=== PATIENT | male | born 1980 | race Caucasian/White ===

== ENCOUNTER 2016-07-22 17:08 | Emergency (ER) ==
[2016-07-22] MEDS ORDERED: ZOFRAN ODT PO ONE (17:19)
[2016-07-22] MEDS ORDERED: PHENERGAN IM ONE (17:19)
[2016-07-22] MEDS ORDERED: ZOFRAN ONE (17:47)
[2016-07-22] MEDS ORDERED: NS 1,000 ML ONE (17:47)
[2016-07-22] MEDS ORDERED: ZOFRAN IV ONE (17:51)
[2016-07-22] MEDS ORDERED: NS 1,000 ML IV ONE (17:51)
[2016-07-22 18:08] LABS: MANUAL DIFF NEEDED? NO
[2016-07-22 18:18] LABS: BASO% 0.3 % (0.0-0.8); EOS# 0.06 X1000 (0.0-0.7); EOS% 0.5 % (0.0-10.0); HEMATOCRIT 55.3 % (42.0-52.0); HEMOGLOBIN 18.5 g/dL (14.0-18.0); IMM GRAN# 0.03 X1000 (0.0-0.04); IMM GRAN% 0.3 % (0.0-0.5); LYMPH# 1.58 X1000 (1.2-3.4); LYMPH% 13.6 % (20.5-51.1); MCH 28.9 PG (27-31); MCHC 33.5 g/dL (33-37); MCV 86.3 FL (81-99); MONO# 0.74 X1000 (0.11-0.59); MONO% 6.3 % (1.7-9.3); MPV 10.7 FL (7.4-10.4); PLT 294 X1000 (130-400); RBC 6.41 XMIL (4.7-6.1)
[2016-07-22] MEDS ORDERED: REGLAN IV ONE (18:20)
--- NOTE | 2016-07-22 18:39 | PROVIDER DOCUMENTATION ---
HPI-Abdominal Pain/GI Problem <Dilan Castaneda - Last Filed: 07/22/16 20:10> - History of Present Illness-ABD Nature of Presenting Problems: 35 YEAR OLD MALE PT STATES "I HAVE HAD A PRODUCTIVE COUGH,SINUS DRAINAGE AND FOR THE PAST COUPLE DAYS,I HAVE HAD N/V/D AND I DRANK A PINT OF ALCOHOL EVERY OTHER DAY. Abdominal Pain Onset Location: reports: epigastric Pain Radiation: reports: no radiation Quality of Pain: reports: cramping Severity in ED: reports: mild Onset/Duration: reports: 2 days ago Timing: reports: still present Activities at Onset: reports: none Exposure to sick contacts?: No Modifying Factors: improves with: lying down, movement Associated Symptoms: reports: diarrhea, sinus congestion/drainage, nausea, vomiting. denies: fever/chills Last BM: this afternoon Dark Stools Present?: reports: none noticed Rectal Bleeding: reports: none Rectal Pain: reports: none Emesis Description: reports: none Bruising or Bleeding Gums?: No Similar Symptoms Previously?: No Recently seen or treated by another doctor?: No <Win Coyne - Last Filed: 07/22/16 20:14> - General Chief Complaint: N/V/D Stated Complaint: STOMACH CRAMPS Time Seen by Provider: 07/22/16 18:14 Allergies/Adverse Reactions: Patient Allergies Allergy/AdvReac Type Severity Reaction Status Date / Time No Known Allergies Allergy Verified 07/22/16 17:37 Home Medications: Home Medication List Medication Instructions Recorded Confirmed Last Taken Type Amlodipine [Norvasc] 10 mg PO DAILY 07/06/14 07/22/16 6 Months Ago History Hydrochlorothiazide 12.5 mg PO DAILY 07/06/14 07/22/16 6 Months Ago History Lisinopril 40 mg PO DAILY 07/06/14 07/22/16 6 Months Ago History Metoprolol [Lopressor] 50 mg PO HS 07/06/14 07/22/16 6 Months Ago History Lisinopril/Hydrochlorothiazide 1 each PO DAILY #30 tablet 07/22/16 Unknown Rx [Lisinopril-Hctz 20-12.5 mg Tab] Metoprolol Succinate 100 mg PO DAILY #30 tab.er.24h 07/22/16 Unknown Rx Omeprazole [Prilosec] 20 mg PO DAILY #30 capsule 07/22/16 Unknown Rx Ondansetron [Zofran Odt] 8 mg PO Q8H PRN #20 tab.rapdis 07/22/16 Unknown Rx Sucralfate [Carafate] 1 gm PO AC + HS #60 tablet 07/22/16 Unknown Rx Review of Systems - Adult - REVIEW OF SYSTEMS - ADULT Constitutional: denies: chills, fever, night sweats Eyes: denies: discharge, blurred vision, eye pain Ears, Nose, Mouth & Throat: reports: sinus problem. denies: ear pain, throat pain Cardiovascular: denies: chest pain, irregular heart rate, palpitations Respiratory: reports: cough. denies: shortness of breath, wheezing Gastrointestinal: reports: abdominal pain, diarrhea, nausea, vomiting Genitourinary: denies: dysuria, flank pain, hematuria Integumentary: denies: hives, itching, rash All Other Systems: Reviewed and Negative <Win Coyne - Last Filed: 07/22/16 20:14> Past History - Adult - PAST MEDICAL HISTORY-ADULT Review of Records: reports: Nursing Assessment Review, Medications Reviewed Major Childhood Illnesses: reports: other (unsure of last tetanus) Cardiovascular: reports: HTN, other (Kawasaki Disease,aneurysms) - PRIOR SURGERIES/PROCEDURES Surgical/Procedure History: reports: hernia repair - PRIOR HOSPITALIZATIONS Prior Hospitalizations: reports: none - IMMUNIZATION STATUS Childhood Immunizations: See Nurse Assessment Flu Vaccine: See Nurse Assessment - SOCIAL HISTORY Smoking: chew Provider spent 3-5 mins advising pt. on dangers of tobacco.: Discussed manners to quit use, and f/u contacts for add'l counseling. Substance Use: none/never Alcohol Use Frequency: 5-6 times a week Number of drinks per typical drinking period:: 3-4 drinks Living Situation: family <Win Conye - Last Filed: 07/22/16 20:14> Physical Exam-General - CONSTITUTIONAL General Appearance: appears well, alert, mild distress - EYES Eyes: PERRL/EOMI, pink conjunctivae, fundi clear, no AV nicking - HEAD, EARS, NOSE, MOUTH & THROAT HENMT: normocephalic/atraumatic, moist mucous membranes - NECK Neck: non-tender, full range of motion, supple, normal inspection - RESPIRATORY Respiratory: chest non-tender, lungs clear, normal breath sounds, no pleuratic chest pain, no respiratory distress, no accessory muscle use - CARDIOVASCULAR Cardiovascular: normal peripheral pulses, regular rate, rhythm, no edema, no gallop, no JVD, no murmur - GASTROINTESTINAL (ABDOMEN) Abdominal Exam: normal bowel sounds, no organomegaly, no pulsatile mass, distended, tenderness - MUSCULOSKELETAL Back Exam: normal inspection, no CVA tenderness, no vertebral tenderness Extremity: normal range of motion, normal gait, normal inspection - SKIN Integumentary: normal color, normal turgor, warm/dry - PSYCHIATRIC Psych/Mental Status: normal mood/affect, normal thought content, normal thought process, oriented x 3 <Win Coyne - Last Filed: 07/22/16 20:14> Progress - PLAN OF CARE/RESULTS Progress/Plan/Lab Results: Laboratory Results - last 24 hr 07/22/16 07/22/16 18:00 18:00 WBC 11.66 H RBC 6.41 H Hgb 18.5 H Hct 55.3 H MCV 86.3 MCH 28.9 MCHC 33.5 RDW Std Deviation 14.1 Plt Count 294 MPV 10.7 H Immature Gran % (Auto) 0.3 Neut % (Auto) 79.0 H Lymph % (Auto) 13.6 L [place] % (Auto) 6.3 Eos % (Auto) 0.5 Baso % (Auto) 0.3 Immature Gran # (Auto) 0.03 Neut # (Auto) 9.22 H Lymph # (Auto) 1.58 [place] # (Auto) 0.74 H Eos # (Auto) 0.06 Baso # (Auto) 0.03 Sodium 140 Potassium 4.0 Chloride 96 L Carbon Dioxide 23 L Anion Gap 21 BUN 17 Creatinine 1.2 Estimated GFR/1.73 m2 > 60 BUN/Creatinine Ratio 14 Glucose 111 H Calculated Osmolality 282 Calcium 9.1 Total Bilirubin 0.80 AST 86 H ALT 68 H Alkaline Phosphatase 74 Total Protein 7.9 Albumin 4.6 Globulin 3.3 Albumin/Globulin Ratio 1.4 Lipase 114 H - REASSESSMENT Reassessment #1 Time Reassessed: 20:12 Status: improving (PT STATED "I WAS SUPPOSE TO BE TAKEN BLOOD PRESSURE MEDICINE BUT I HAVEN'T TAKEN ANY IN ONE YEAR".) <Win Coyne - Last Filed: 07/22/16 20:14> Departure - Departure Time of Disposition Order: 20:05 Certified Medical Emergency: Emergent <Dilan Castaneda - Last Filed: 07/22/16 20:10> <Win Coyne - Last Filed: 07/22/16 20:14> - Departure DIAGNOSIS: Chronic hypertension Alcoholic gastritis Qualifiers: Chronicity: acute Gastritis bleeding: without bleeding Qualified Code(s): K29.20 - Alcoholic gastritis without bleeding Acute alcoholic pancreatitis Qualifiers: Acute pancreatitis complication: no infection or necrosis Qualified Code(s): K85.20 - Alcohol induced acute pancreatitis without necrosis or infection Disposition: HOME 01 Condition: Fair Prescriptions: Sucralfate [Carafate] 1 gm PO AC + HS #60 tablet Lisinopril/Hydrochlorothiazide [Lisinopril-Hctz 20-12.5 mg Tab] 1 each PO DAILY #30 tablet Metoprolol Succinate 100 mg PO DAILY #30 tab.er.24h Omeprazole [Prilosec] 20 mg PO DAILY #30 capsule Ondansetron [Zofran Odt] 8 mg PO Q8H PRN #20 tab.rapdis Referrals: Marbin Bernabe MD [Primary Care Provider] - Physician Attestation
[2016-07-22 19:01] LABS: AGAP 21; ALBUMIN 4.6 g/dL (3.5-5.0); ALKALINE PHOSPHATASE 74 U/L (32-122); BUN 17 mg/dL (8-22); CALCIUM 9.1 mg/dL (8.8-10.2); CHLORIDE 96 mmol/L (98-107); COSMO 282; GOT 86 U/L (10-34); GPT 68 U/L (10-44); LIPASE 114 U/L (13-60); SODIUM 140 mmol/L (136-145); TCO2 23 mmol/L (25-35); TOTAL PROTEIN 7.9 g/dL (6.3-8.3)
[2016-07-22 19:54] VITALS: BP 166/116
[2016-07-22] MEDS ORDERED: CARAFATE LIQUID PO ONE (20:01)
[2016-07-22] MEDS ORDERED: PRINZIDE 20/12.5MG PO ONE (20:09)
[2016-07-22] MEDS ORDERED: LOPRESSOR PO ONE (20:09)
== END 2016-07-22 20:27 | disposition home or self-care (01) ==
LOC: ED 17:08
DX: K29.20 Alcoholic gastritis without bleeding (principal); K85.20 Alcohol induced acute pancreatitis without necrosis or infection; I10 Essential (primary) hypertension; R05 Cough; R09.3 Abnormal sputum; R11.2 Nausea with vomiting, unspecified; R19.7 Diarrhea, unspecified; R10.13 Epigastric pain; R09.81 Nasal congestion; F17.220 Nicotine dependence, chewing tobacco, uncomplicated; Z79.899 Other long term (current) drug therapy; Z71.6 Tobacco abuse counseling
CPT/HCPCS: 80053; 83690; 85025; J2405; J2550; J2765; J7030

== ENCOUNTER 2019-08-03 22:54 | Inpatient (IN) ==
[2019-08-03] MEDS ORDERED: NS 1,000 ML IV ONE (23:13)
[2019-08-03 23:43] LABS: ALLEN TEST YES; BE 1.6 mmoll (-3.0-3.0); BLOOD TYPE ARTERIAL; HCO3-(ACT) 26.1 mmoll (20.0-26.0); METHB 0.9 % (0.0-1.5); O2(CT) 25.3 mL/dL (15.0-23.0); O2HB 95.2 % (95.0-99.0); PCO2(98.6) 29 mmHg (35-45); PO2(98.6) 80 mmHg (60-100); SAMPLE BLOOD; SAO2 98.2 % (95.0-100.0); THB 18.9 g/dL (11.5-17.4); pH(98.6) 7.51 (7.35-7.45)
[2019-08-03 23:44] LABS: MODALITY ROOM AIR
[2019-08-04 00:11] LABS: INR 1.04; PROTIME 13.7 Seconds (11.0-16.0)
[2019-08-04 00:12] LABS: PTT 29.5 Seconds (22.3-41.8)
[2019-08-04] MEDS ORDERED: LOPRESSOR IV ONE ×2 (00:13→03:09)
[2019-08-04 00:25] LABS: BASO# 0.05 X1000 (0.0-0.2); BASO% 0.2 % (0.0-0.8); EOS# 0.11 X1000 (0.0-0.7); EOS% 0.5 % (0.0-10.0); HEMATOCRIT 58.3 % (42.0-52.0); HEMOGLOBIN 19.3 g/dL (14.0-18.0); IMM GRAN# 0.04 X1000 (0.0-0.04); IMM GRAN% 0.2 % (0.0-0.5); LYMPH# 1.37 X1000 (1.2-3.4); LYMPH% 6.8 % (20.5-51.1); MCH 28.8 PG (27-31); MCHC 33.1 g/dL (33-37); MONO# 0.78 X1000 (0.11-0.59); MONO% 3.9 % (1.7-9.3); MPV 11.4 FL (7.4-10.4); NEUT% 88.4 % (42.2-75.2); PLT 186 X1000 (130-400); RDW 13.8 % (11.5-14.5); WBC 20.05 X1000 (4.8-10.8)
[2019-08-04 00:35] LABS: ALBUMIN 4.7 g/dL (3.5-5.0); ALKALINE PHOSPHATASE 88 U/L (32-122); CHLORIDE 90 mmol/L (98-107); CREATININE 1.3 mg/dL (0.7-1.2); ESTIMATED GFR > 60; GPT 33 U/L (10-44); POTASSIUM 3.9 mmol/L (3.5-5.1); SODIUM 136 mmol/L (136-145)
[2019-08-04 00:50] LABS: URINE SOURCE CLEAN CATCH
[2019-08-04 00:53] LABS: BILIRUBIN URINE SMALL (NEGATIVE); BLOOD URINE MODERATE (NEGATIVE); COLOR BROWN; GLUCOSE URINE TRACE mg/dL (NEGATIVE); KETONE URINE 20 mg/dL (NEGATIVE); LEUKOCYTES URINE NEGATIVE (NEGATIVE); NITRITE URINE NEGATIVE (NEGATIVE); PH URINE 6.5; PROTEIN URINE >600 mg/dL (NEGATIVE); SP GRAVITY URINE 1.036; TURBIDITY URINE HAZY (CLEAR); UROBILINOGEN URINE 2 mg/dL (NORMAL)
[2019-08-04 00:54] LABS: UR EPITHELIAL CELLS <10 /HPF (<10); URINE BACTERIA NEGATIVE /HPF; URINE RBC 20-40 /HPF (<10); URINE WBC <10 /HPF (<10)
[2019-08-04 00:56] LABS: BUN 11 mg/dL (8-22); CALCIUM 10.2 mg/dL (8.8-10.2); GLUCOSE 124 mg/dL (70-104); GOT 32 U/L (10-34); TCO2 24 mmol/L (25-35); TOTAL BILIRUBIN 3.63 mg/dL (0.20-1.00)
[2019-08-04 01:11] LABS: UR AMPHETAMINES QUAL PRESUMPTIVE POSITIVE (NONE DETECT); UR BARBITUATES QUAL NONE DETECTED (NONE DETECT); UR BENZODIAZEPIN QUAL NONE DETECTED (NONE DETECT); UR CANNABINOIDS QUAL NONE DETECTED (NONE DETECT); UR COCAINE QUAL NONE DETECTED (NONE DETECT); UR METHADONE QUAL NONE DETECTED (NONE DETECT); UR OPIATES QUAL NONE DETECTED (NONE DETECT); UR OXYCODONE QUAL NONE DETECTED (NONE DETECT); UR PCP QUAL NONE DETECTED (NONE DETECT)
[2019-08-04 01:14] LABS: CK INDEX 1.2 (0.0-2.5); CK-MB 3.62 ng/mL (0.0-5.0)
[2019-08-04 01:18] LABS: AGAP 22; ALB/GLOB RATIO 1.1; COSMO 273
[2019-08-04] MEDS ORDERED: ZOFRAN IV ONE (01:18)
--- NOTE | 2019-08-04 01:22 | PROVIDER DOCUMENTATION ---
This chart was entered by Johnna Christine Scribe, acting as scribe for Marily Rouse MD. HPI-Abdominal Pain/GI Problem - General Chief Complaint: Abdominal Pain Stated Complaint: STOMACH PAIN, BLOATING Time Seen by Provider: 08/03/19 23:19 Source: patient Allergies/Adverse Reactions: Patient Allergies Allergy/AdvReac Type Severity Reaction Status Date / Time No Known Allergies Allergy Verified 07/26/16 04:21 Home Medications: Home Medication List Medication Instructions Recorded Confirmed Last Taken Type Hydrochlorothiazide 12.5 mg PO DAILY 07/06/14 07/26/16 07/26/16 00:00 History Lisinopril 40 mg PO DAILY 07/06/14 07/26/16 07/26/16 00:00 History Metoprolol Succinate 100 mg PO DAILY #30 tab.er.24h 07/22/16 07/26/16 Unknown Rx Ondansetron [Zofran Odt] 8 mg PO Q8H PRN #20 tab.rapdis 07/22/16 07/26/16 Unknown Rx Sucralfate [Carafate] 1 gm PO AC + HS #60 tablet 07/22/16 07/26/16 Unknown Rx Omeprazole [Prilosec] 40 mg PO DAILY 07/26/16 07/26/16 Unknown History Chlordiazepoxide [Librium] 25 mg PO Q6H PRN PRN #18 capsule 07/28/16 Unknown Rx - History of Present Illness-ABD Nature of Presenting Problems: 38 y/o male with history of hypertension presents to the ED with complaint of nausea, vomiting, abdominal pain, and bloating since Tuesday. He states he has vomited 40-50 times since Tuesday with last episode 12 hours prior to arrival as well as diarrhea Tuesday afternoon with no bowel movement since that time. He also reports palpitations this am without chest pain or SOB and dark blood tinged urine. Denies recent travel and known sick contacts. Abdominal Pain Onset Location: reports: epigastric Quality of Pain: reports: fullness Onset/Duration: reports: 2 days ago Timing: reports: still present Associated Symptoms: reports: diarrhea, nausea, vomiting. denies: chest pain, constipation, dizziness, fever/chills, headaches, shortness of breath Last BM: 2 days ago (Tuesday afternoon) Rectal Bleeding: reports: none Similar Symptoms Previously?: No Recently seen or treated by another doctor?: No Review of Systems - Adult - REVIEW OF SYSTEMS - ADULT Constitutional: reports: other (loss of appetite). denies: chills, fever Eyes: reports: no symptoms reported Ears, Nose, Mouth & Throat: denies: hoarseness, throat pain, throat swelling Cardiovascular: reports: palpitations. denies: chest pain, syncope Respiratory: reports: no symptoms reported Gastrointestinal: reports: abdominal pain, diarrhea, nausea, vomiting Genitourinary: reports: hematuria (possible), other (dark possibly blood tinged urine). denies: discharge, flank pain Musculoskeletal: reports: no symptoms reported Integumentary: reports: no symptoms reported Neurological: denies: dizziness/vertigo, headache/migraines, syncope Psychiatric: reports: no symptoms reported Endocrine: reports: no symptoms reported Hematologic/Lymphatic: reports: no symptoms reported Allergic/Immunologic: reports: no symptoms reported All Other Systems: Reviewed and Negative Past History - Adult - PAST MEDICAL HISTORY-ADULT Review of Records: reports: Old Records Reviewed, Nursing Assessment Review, Medications Reviewed Major Childhood Illnesses: reports: other (unsure of last tetanus) Cardiovascular: reports: HTN, other (Kawasaki Disease,aneurysms) - PRIOR SURGERIES/PROCEDURES Surgical/Procedure History: reports: hernia repair - PRIOR HOSPITALIZATIONS Prior Hospitalizations: reports: none - IMMUNIZATION STATUS Childhood Immunizations: See Nurse Assessment Flu Vaccine: See Nurse Assessment - SOCIAL HISTORY Smoking: other (former smoker) Substance Use: alcohol Physical Exam-General - PHYSICAL EXAM-ADULT Initial Vital Signs Reviewed: Yes (BP 182/145, pulse 156 ) - CONSTITUTIONAL General Appearance: alert, obese - EYES Eyes: PERRL/EOMI - HEAD, EARS, NOSE, MOUTH & THROAT HENMT: normocephalic/atraumatic, moist mucous membranes - NECK Neck: full range of motion, supple - RESPIRATORY Respiratory: lungs clear, normal breath sounds, no respiratory distress, no accessory muscle use. negative: rales, rhonchi, wheezing - CARDIOVASCULAR Cardiovascular: tachycardia - GASTROINTESTINAL (ABDOMEN) Abdominal Exam: soft, tenderness (epigastrum, RUQ, LUQ). negative: rigid - MUSCULOSKELETAL Back Exam: no CVA tenderness - SKIN Integumentary: warm/dry. negative: diaphoresis - NEUROLOGIC Neurologic: grossly normal - PSYCHIATRIC Psych/Mental Status: normal mood/affect, normal thought content, normal thought process Progress - PLAN OF CARE/RESULTS Progress/Plan/Lab Results: Vital Signs - 8 hr 08/03/19 23:00 Temperature 98.6 F Pulse Rate 151 H Respiratory Rate 20 Blood Pressure 180/136 O2 Sat by Pulse Oximetry 95 Orders Category Date Time Status Saline Loc NOW Care 08/03/19 23:14 Active CHEST-2 VIEWS [RAD] Stat Exams 08/03/19 23:14 Ordered ABG [RESP] Routine Lab 08/03/19 23:14 Ordered BLOOD CULTURE [BLDCUL] Stat Lab 08/03/19 23:14 Uncollected CBC WITH DIFF [HEME] Stat Lab 08/03/19 23:14 Uncollected CK PROFILE [SP CHEM] Stat Lab 08/03/19 23:15 Uncollected COMPREHENSIVE METABOLIC PANEL [CHEM] Stat Lab 08/03/19 23:14 Uncollected LACTATE, PLASMA [CHEM] Stat Lab 08/03/19 23:13 Uncollected PRO B-NATRIURETIC PEPTIDE Stat Lab 08/03/19 23:14 Uncollected TROPONIN T HIGH SENSITIVITY Stat Lab 08/03/19 23:15 Uncollected UA NIMS W/REFLEX CULT [URINALYSIS] Stat Lab 08/03/19 23:15 Uncollected URINE DRUG SCREEN Stat Lab 08/03/19 23:15 Uncollected 0.9% Sodium Chloride Inj [Ns] 1,000 ml Med 08/03/19 23:13 Active IV 999 mls/hr Pulse Oximetry Stat Oth 08/03/19 23:14 Active 14060: BP 173/117, HR 143. Will give Metoprolol 5 mg. IV. The patient is resting and in no acute distress. Result Diagrams: 08/03/19 23:35 08/03/19 23:35 - EKG 1 Time of EKG reading by physician:: 23:07 EKG Read and Signed by:: Marily Rouse EKG Interpretation (*Must complete 3 of following elements*): Abnormal Rate: 150 Rhythm: sinus tachycardia w/short [place]: right ST Wave: elevated (rate related ST-T elevations) Comments: No STEMI - CONSULTS/PCP/HOSPITALIST Notification #1 *Consult/PCP/Hospitalist*: d/w Dr Mo Time Discussed: 02:50 Consult Disposition: Admit Departure - Departure Date of Disposition Decision: 08/04/19 Time of Disposition Decision: 02:18 DIAGNOSIS: Acute pancreatitis, Uncontrolled hypertension, Sinus tachycardia Disposition: ADMITTED INPATIENT 09 Certified Medical Emergency: Emergent Condition: Stable Referrals and Follow-Ups: None,PCP [Primary Care Provider] - - Critical Care Note This patient required my direct & personal management of CC.: No Attestation - Physician/ CHACHA Attestation Patient care was provided by Advanced Practice Provider:: No The physician spent face to face time with patient:: Yes Advanced Practice Provider documentation review:: Supervising physician onsite and consulted in the evaluation and care of this patient. The physician did have a face to face encounter with the patient. This chart was documented by the indicated scribe, (Johnna Christine, [place]) and accurately reflects the services I performed and decisions made by me, Marily Rouse MD, as attested by the provider's signature.
[2019-08-04] MEDS ORDERED: NS 1,000 ML IV ONE (01:53)
[2019-08-04 02:59] LABS: AMYLASE 58 U/L (20-200); LIPASE 108 U/L (13-60)
--- NOTE | 2019-08-04 07:10 | Diag Imaging Result Doc PS360 ---
CHEST-2 VIEWS - 08/03/2019 INDICATION: cough COMPARISON: 07/19/1716 FINDINGS: Stable small calcified granuloma in the right midlung. The lungs are clear. Heart size is normal. No pneumothorax or pleural effusion. IMPRESSION: Negative exam. Electronically signed by Onel Pagan 08/04/2019 7:07 AM
--- NOTE | 2019-08-04 07:48 | HISTORY AND PHYSICAL ---
PRIMARY CARE PROVIDER: Marbin Bernabe MD. CHIEF COMPLAINT: Nausea, vomiting, and 3 days duration of abdominal pain. HISTORY OF PRESENTING COMPLAINT: The patient is a 38-year-old male, with a history of hypertension, alcohol use disorder in the past, and also history of pancreatitis in the past, who presented with nausea and vomiting of 3 days duration. He states he has been nauseous and vomiting over the last 3 days. The nausea persists although the vomiting has improved as he has not vomited in the last 1 day. He is now able to hold some liquid diet down but still off his baseline. He described associated epigastric pain, which he said is on and off, sharp in nature. It is nonradiating. It is worsened when he eats as well. He denies any dysuria or frequency. He denies any diarrhea. He denies any constipation. He denies any fever as well or shortness of breath. Of note, the patient has had pancreatitis in the past, and he believes this is probably due to his chronic alcohol use. He still continues to drink alcohol. In the ER, patient had a CT scan done that revealed acute pancreatitis. Although the lipase was borderline, just mildly elevated, Hospitalist was called to admit the patient. PAST MEDICAL HISTORY: Hypertension. 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 At 13 years of age he had an arteriogram that showed that the aneurysm had closed off so he has never had any dissection of any of this aneurysm. He has had a history of left arm compartment syndrome in the past. PAST SURGICAL HISTORY: He has had a left arm fasciotomy, right arm surgery, and bilateral inguinal hernia. HOME MEDICATIONS: Lisinopril 40 mg daily, metoprolol succinate 100 mg daily, omeprazole 40 mg daily, and ondansetron 8 mg q.8 hours p.r.n. ALLERGIES: No known drug allergies. SOCIAL HISTORY: He describes significant alcohol intake, drinks rum about 4 nights per week and still quietly drinks. He also endorses smoking as well. He has a smoking history of [id number] as he has quit for 15 years before restarting. He said he started smoking during high school, quit for 15 years and then started smoking in the last 1 year. FAMILY HISTORY: Mother has a history of hypertension. Father also has a history of hypertension. Denies history of pancreatitis in any family. REVIEW OF SYSTEMS: He denies any fever, dysuria, hematuria, frequency, or any change in bowel movements. A 12 point review of systems was done and negative except as stated in the HPI. PHYSICAL EXAMINATION: VITALS: Pulse was 134. Blood pressure 182/145, later improved to 162/118. He was saturating 94% on room air. GENERAL: On examination, he is a young male, morbidly obese, in no acute respiratory distress. HEENT: Not pale. Anicteric. Acyanoses. Mildly dry oral mucosa. CVS: S1, S2 heard. No murmurs, rubs, or gallops. RESPIRATORY: Good air entry bilaterally. No wheeze. No crepitations. No added sounds. ABDOMEN: He has epigastric tenderness noted. Bowel sounds normoactive. No organomegaly noted. EXTREMITIES: Bilateral pedal edema noted. NEUROLOGIC: Alert and oriented x3. No focal neurological deficit noted. SKIN: No skin changes noted. LABS: WBC 20.05, hemoglobin 19.3, hematocrit 58.3, platelets 186,000. INR is 0.04. Sodium 136, potassium 3.9, chloride 90, bicarb 24, anion gap 22, BUN 11, creatinine 1.3, glucose 124. He has AST 32, ALT 33, and creatine kinase 293. Troponin 16. ProBNP 922. Total bilirubin was 3.63. Alkaline phosphatase was 88. Lipase was 108. Amylase 58. His UA shows a pH of 6.5, specific gravity of 1.036, protein more than 600, ketones 20, blood moderate, nitrite negative, leukocytes negative, small bilirubin, RBC 20 to 40, WBC less than 10, epithelial cell less than 10, and bacteria negative. UDS was positive for amphetamines. CT scan revealed acute pancreatitis and also some mild hepatic steatosis ASSESSMENT: This is a 38-year-old, with history of hypertension, alcoholic pancreatitis in the past, alcoholic gastritis, alcohol use disorder as well, who presented with nausea and vomiting of 3 days duration, with associated epigastric pain and tenderness on examination. Although the patient's lipase is marginally elevated at 108, however, his CT scan that was done, suggested acute pancreatitis and also some mild hepatic steatosis as well. DIAGNOSES: 1. Acute alcoholic pancreatitis, rule out any secondary contribution from gallstone or hyperlipidemia. 2. Hypoalbuminemia. 3. Acute kidney injury. 4. Amphetamine use disorder. 5. Uncontrolled hypertension. 6. Leukocytosis PLAN: 1. Acute alcoholic pancreatitis. Patient with history of acute alcoholic pancreatitis in the past. Still has alcohol intake history. Although the lipase is mildly elevated, given symptoms and CT abdomen findings suggestive of acute pancreatitis, we can diagnose acute pancreatitis with the 2 positive features. , so we will hydrate the patient with IV fluid normal saline. The patient is already tolerating some liquid diet so continue the patient on a full liquid diet and advance as tolerated. IV morphine for pain, and I expect improvement in symptoms with hydration and pain management. We will do a lipid panel as well, and also abdominal ultrasound to rule out a gallstone component. 2. Hyperbilirubinemia. We will do a direct bilirubin level to ascertain the cause of hyperbilirubinemia. Suggest probably gallstone may be involved although alkaline phosphatase was normal. We will evaluate with abdominal ultrasound results. 3. Leukocytosis. He has markedly elevated leukocytosis, suspect the patient's volume depletion may be contributory but suspect there may also be some infectious cause. Lactic acid is normal. We will hydrate and expect improvement in WBC. We will also do a blood culture as well. Chest x-ray and UA are negative for any infectious cause. Holding off on antibiotics at this time as there is no focus of infection and we will treat based on results. 4. Acute kidney injury. Hydrate the patient with IV fluids and expect improvement with IV fluid hydration. 5. Amphetamine use disorder. counselled patient as this also probably worsens patients hypertension as well. 6. Uncontrolled hypertension. The patient states he has not filled his blood pressure medications in over a week. The patient will need adequate setup with his primary care and refill of his blood pressure prescriptions as well. We will resume the patient's home blood pressure medications at this time. 7. DVT prophylaxis. Lovenox. 8. Code status. Full code. DISPOSITION: Admit the patient inpatient. The patient will need adequate hydration and workup to determine infectious cause and will d/c when medically stable. [facility]
[2019-08-04] MEDS ORDERED: ZOFRAN IV PRN (08:04)
[2019-08-04] MEDS ORDERED: NS 1,000 ML IV SCH (08:04)
--- NOTE | 2019-08-04 08:43 | Diag Imaging Result Doc PS360 ---
CT ABDOMEN/PELVIS W/O CONTRAST - 08/04/2019 INDICATION: abd pain COMPARISON: None FINDINGS: The lung bases are clear and the heart size is normal. There is severe diffuse fatty change of the liver. There is extensive inflammatory edema around the pancreas mainly at the pancreatic head and body. This indicates acute pancreatitis. No drainable fluid collections. The gallbladder appears normal. Other abdominal organs appear normal. No bowel obstruction or inflammation. Normal appendix. Urinary bladder, prostate, and rectum are normal. Bones are intact and well mineralized. IMPRESSION: Severe fatty change of the liver. Acute pancreatitis. No evidence of complication. This exam was performed using automated exposure control, adjustment of mA or kV according to patient size, and/or use of iterative reconstruction technique Electronically signed by Onel Pagan 08/04/2019 8:40 AM
[2019-08-04] MEDS: LOVENOX SUBQ SCH (08:51)
[2019-08-04] MEDS: PRILOSEC PO SCH (08:51)
[2019-08-04] MEDS ORDERED: TOPROL XL PO SCH (09:00)
[2019-08-04] MEDS ORDERED: PRINIVIL PO SCH (09:00)
[2019-08-04] MEDS: MORPHINE IV PRN ×2 (09:05→21:44)
[2019-08-04 09:42] LABS: HEMATOCRIT 50.8 % (42.0-52.0); HEMOGLOBIN 16.7 g/dL (14.0-18.0); MCH 29.3 PG (27-31); MCHC 32.9 g/dL (33-37); MCV 89.1 FL (81-99); MPV 11.8 FL (7.4-10.4); RBC 5.7 XMIL (4.7-6.1); RDW 13.7 % (11.5-14.5); WBC 18.74 X1000 (4.8-10.8)
[2019-08-04 10:05] LABS: AGAP 12; ALB/GLOB RATIO 1.1; ALBUMIN 3.7 g/dL (3.5-5.0); ALKALINE PHOSPHATASE 64 U/L (32-122); BUN 12 mg/dL (8-22); CALCIUM 8.9 mg/dL (8.8-10.2); CHLORIDE 93 mmol/L (98-107); COSMO 260; CREATININE 1.1 mg/dL (0.7-1.2); ESTIMATED GFR > 60; GLUCOSE 124 mg/dL (70-104); GOT 25 U/L (10-34); GPT 24 U/L (10-44); POTASSIUM 4.1 mmol/L (3.5-5.1); SODIUM 129 mmol/L (136-145); TCO2 24 mmol/L (25-35); TOTAL BILIRUBIN 2.58 mg/dL (0.20-1.00)
--- NOTE | 2019-08-04 11:04 | Diag Imaging Result Doc PS360 ---
US ABDOMEN-COMPLETE - 08/04/2019 INDICATION: gallstone COMPARISON: CT from earlier 08/04/2019 FINDINGS: The liver is severely fatty. The gallbladder is normal. The pancreas is obscured. No mass or fluid collection. No biliary dilation. Common bile duct measures 4 mm. There is a small left renal cyst. Otherwise both kidneys are normal. Spleen is normal measuring 12.4 x 5.3 cm. Aorta, IVC, and main portal vein are grossly patent. IMPRESSION: Severe fatty liver. Electronically signed by Onel Pagan 08/04/2019 11:02 AM
[2019-08-04] MEDS ORDERED: LABETALOL IV STA (12:37)
[2019-08-04] MEDS ORDERED: APRESOLINE PO SCH (13:00)
[2019-08-04] MEDS: ZOSYN 3.375 GM in NS 50 ML IV SCH ×2 (13:19→21:25)
[2019-08-04] MEDS: NS 1,000 ML IV SCH (21:23)
[2019-08-04] MEDS: PRINIVIL PO SCH (21:27)
[2019-08-04] MEDS: NORVASC PO SCH (21:28)
[2019-08-04] MEDS: APRESOLINE PO SCH (21:31)
[2019-08-05] MEDS: ZOSYN 3.375 GM in NS 50 ML IV SCH ×4 (01:38→19:57)
[2019-08-05] MEDS: MORPHINE IV PRN ×2 (01:40→20:41)
[2019-08-05] MEDS: APRESOLINE PO SCH ×3 (04:56→20:01)
[2019-08-05] MEDS: CATAPRES PO SCH ×4 (05:00→20:00)
[2019-08-05] MEDS: NS 1,000 ML IV SCH ×2 (06:33→14:11)
[2019-08-05 07:37] LABS: BASO# 0.03 X1000 (0.0-0.2); BASO% 0.2 % (0.0-0.8); EOS# 0.38 X1000 (0.0-0.7); EOS% 2.9 % (0.0-10.0); HEMATOCRIT 47.5 % (42.0-52.0); HEMOGLOBIN 15.5 g/dL (14.0-18.0); IMM GRAN# 0.02 X1000 (0.0-0.04); IMM GRAN% 0.2 % (0.0-0.5); LYMPH% 8.4 % (20.5-51.1); MCH 29.7 PG (27-31); MCHC 32.6 g/dL (33-37); MONO# 0.64 X1000 (0.11-0.59); MONO% 4.9 % (1.7-9.3); MPV 11.8 FL (7.4-10.4); NEUT# 10.93 X1000 (1.4-6.5); NEUT% 83.4 % (42.2-75.2); PLT 144 X1000 (130-400); RBC 5.22 XMIL (4.7-6.1); RDW 13.6 % (11.5-14.5)
[2019-08-05 08:22] LABS: AGAP 15; ALB/GLOB RATIO 1.1; ALBUMIN 3.7 g/dL (3.5-5.0); ALKALINE PHOSPHATASE 70 U/L (32-122); BUN 11 mg/dL (8-22); CHLORIDE 92 mmol/L (98-107); COSMO 258; ESTIMATED GFR > 60; GLUCOSE 92 mg/dL (70-104); GOT 19 U/L (10-34); GPT 21 U/L (10-44); LIPASE 123 U/L (13-60); POTASSIUM 3.9 mmol/L (3.5-5.1); SODIUM 129 mmol/L (136-145); TCO2 22 mmol/L (25-35); TOTAL BILIRUBIN 2.08 mg/dL (0.20-1.00); TOTAL PROTEIN 7.1 g/dL (6.3-8.3)
[2019-08-05 08:28] LABS: HEMOGLOBIN A1C 6.1 % (4.8-6.0)
[2019-08-05 08:32] LABS: CHOLESTEROL 135 mg/dL (0-200); HDL 38 mg/dL (35-55); LDL 73 mg/dL; TRIGLYCERIDES 119 mg/dL (39-160); VLDL 24 mg/dL
[2019-08-05] MEDS: PRILOSEC PO SCH (09:00)
[2019-08-05] MEDS: PRINIVIL PO SCH ×2 (09:00→20:00)
[2019-08-05] MEDS: TOPROL XL PO SCH (09:00)
[2019-08-05] MEDS: NORVASC PO SCH ×2 (09:01→20:01)
[2019-08-05] MEDS: LOVENOX SUBQ SCH (09:03)
--- NOTE | 2019-08-05 09:18 | Diag Imaging Result Doc PS360 ---
CHEST-PORTABLE - 08/05/2019 INDICATION: pneumonia COMPARISON: 08/03/2019 FINDINGS: The lungs are normally expanded and clear. Heart size and mediastinal contours are normal. No pneumothorax or pleural effusion. IMPRESSION: Negative exam. Electronically signed by Onel Pagan 08/05/2019 9:15 AM
--- NOTE | 2019-08-05 16:56 | PROGRESS NOTE ---
DATE: 08/05/2019 SUBJECTIVE: The patient is sitting up at the edge of the bed. He states that his abdomen feels a lot better. He was able to tolerate a full liquid diet yesterday and this morning without any difficulty. OBJECTIVE: Vital Signs: Temperature 98.4 degrees, blood pressure 139/88, heart rate 90, respirations 20, O2 saturation is 99% on room air. General: This is a morbidly obese male sitting at the edge of the bed, in no acute distress. Heart: S1, S2 normal. Regular rate and rhythm. Lungs: Clear to auscultation bilaterally. Abdomen: Positive bowel sounds. Soft. Mild epigastric tenderness. Extremities: No edema. No cyanosis. Neurologic: The patient is alert and oriented x4. LABS: White blood cell count 13, hemoglobin 15, hematocrit 47, platelets 144,000. Sodium 129, potassium 3.9, chloride 92, CO2 22, BUN 11, creatinine 1, glucose 92. A1c 6.1. ASSESSMENT AND PLAN: 1. Acute pancreatitis likely secondary to alcohol abuse. Improved. We will advance the patient to a diabetic diet. The patient has been counseled extensively about avoiding alcohol. 2. Hypertension. Improved. Continue on the current antihypertensive regimen. 3. Prediabetes. We will consult with the dietitian. The patient has been advised to lose weight and to quit drinking alcohol. 4. Leukocytosis. Improved. No obvious source of infection was found. This is likely stress induced. 5. Deep vein thrombosis prophylaxis. Continue on Lovenox. cc: Jeanne Orellana MD MTDD
[2019-08-06] MEDS: ZOSYN 3.375 GM in NS 50 ML IV SCH ×2 (01:50→07:57)
[2019-08-06] MEDS: MORPHINE IV PRN (01:56)
[2019-08-06] MEDS: APRESOLINE PO SCH ×3 (06:25→20:20)
[2019-08-06 07:05] LABS: BASO# 0.02 X1000 (0.0-0.2); BASO% 0.2 % (0.0-0.8); EOS# 0.53 X1000 (0.0-0.7); EOS% 5.1 % (0.0-10.0); HEMATOCRIT 46.4 % (42.0-52.0); HEMOGLOBIN 14.9 g/dL (14.0-18.0); IMM GRAN# 0.03 X1000 (0.0-0.04); IMM GRAN% 0.3 % (0.0-0.5); LYMPH# 1.32 X1000 (1.2-3.4); LYMPH% 12.8 % (20.5-51.1); MCH 29.6 PG (27-31); MCHC 32.1 g/dL (33-37); MCV 92.2 FL (81-99); MONO# 0.78 X1000 (0.11-0.59); MONO% 7.6 % (1.7-9.3); MPV 11.5 FL (7.4-10.4); NEUT# 7.63 X1000 (1.4-6.5); PLT 169 X1000 (130-400); RBC 5.03 XMIL (4.7-6.1); RDW 13.7 % (11.5-14.5); WBC 10.31 X1000 (4.8-10.8)
[2019-08-06] MEDS: ATIVAN IV PRN ×2 (07:27→20:19)
[2019-08-06 07:34] LABS: AGAP 10; ALB/GLOB RATIO 0.9; ALBUMIN 3.6 g/dL (3.5-5.0); ALKALINE PHOSPHATASE 61 U/L (32-122); BUN 13 mg/dL (8-22); CALCIUM 9.2 mg/dL (8.8-10.2); CHLORIDE 98 mmol/L (98-107); COSMO 270; CREATININE 0.9 mg/dL (0.7-1.2); ESTIMATED GFR > 60; GLUCOSE 92 mg/dL (70-104); GOT 25 U/L (10-34); GPT 23 U/L (10-44); LIPASE 105 U/L (13-60); POTASSIUM 3.9 mmol/L (3.5-5.1); SODIUM 135 mmol/L (136-145); TCO2 27 mmol/L (25-35); TOTAL BILIRUBIN 1.43 mg/dL (0.20-1.00); TOTAL PROTEIN 7.5 g/dL (6.3-8.3)
[2019-08-06] MEDS: NORVASC PO SCH ×2 (08:00→20:21)
[2019-08-06] MEDS: CATAPRES PO SCH ×3 (08:00→16:44)
[2019-08-06] MEDS: PRILOSEC PO SCH (08:00)
--- NOTE | 2019-08-06 08:00 | EKG Report ---
Test Performed on : 08/03/2019 11:07:44 PM Test Reason : ED. NO EKG ORDER FOR MUSE Blood Pressure : / mmHG Vent. Rate : 150 BPM Atrial Rate : 150 BPM P-R Int : 098 ms QRS Dur : 102 ms QT Int : 336 ms P-R-T Axes : -02 116 058 degrees QTc Int : 530 ms Sinus tachycardia. with short OH Right axis deviation Abnormal ECG When compared with ECG of 27-JUL-2016 06:01, Vent. rate has increased BY 54 BPM QRS duration has decreased Unconfirmed Result
[2019-08-06] MEDS: LOVENOX SUBQ SCH (08:01)
[2019-08-06] MEDS: PRINIVIL PO SCH ×2 (08:01→20:21)
[2019-08-06] MEDS: TOPROL XL PO SCH (08:03)
[2019-08-06] MEDS: LIBRIUM PO SCH ×3 (11:11→22:16)
--- NOTE | 2019-08-06 14:20 | PROGRESS NOTE ---
DATE: 08/06/2019 SUBJECTIVE: The patient is resting comfortably overnight. The patient stated that he started to hallucinate. He states that he saw bugs on the ceiling and smoke coming out of the TV and the wall. OBJECTIVE: Vital Signs: Temperature is 97.8 degrees, blood pressure is 146/75, heart rate is 94, respirations are 20, O2 saturation is 100% on room air. General: This is a morbidly obese male sitting at the edge of the bed in no acute distress. Heart: S1, S2 normal. Regular rate and rhythm. Lungs: Clear to auscultation bilaterally. Abdomen: Positive bowel sounds. Soft, nontender, nondistended. Extremities: No edema. No cyanosis. Neurologic: The patient is alert and oriented x3. LABORATORY DATA: White blood cell count 10, hemoglobin 14, hematocrit 46, platelets 169,000. Sodium is 135, potassium is 3.9, chloride is 98, CO2 is 27, BUN is 13, creatinine is 0.9, glucose is 92, total bilirubin is 1.4, AST is 25, ALT is 23, alkaline phosphatase is 61. ASSESSMENT AND PLAN: 1. Acute pancreatitis secondary to alcohol abuse. Resolved. The patient is tolerating a diabetic diet without any difficulty. He denies any nausea, vomiting or abdominal pain. 2. Early alcohol withdrawal. The patient has been started on Librium. We will continue to monitor him closely. The patient has again been counseled about the importance of alcohol cessation. 3. Prediabetes. The dietitian has been consulted. The patient has been advised to lose weight. 4. Leukocytosis. Resolved. 5. Hypertension. Improved. Continue on the current antihypertensive regimen. 6. Deep vein thrombosis prophylaxis. Continue on Lovenox. 7. Disposition. The patient should hopefully be stable for discharge tomorrow if he does not have any further episodes of hallucinating. cc: Jeanne Orellana MD MTDD
[2019-08-07] MEDS: ATIVAN IV PRN (04:41)
[2019-08-07] MEDS: LIBRIUM PO SCH ×2 (04:41→11:33)
[2019-08-07] MEDS: APRESOLINE PO SCH ×2 (04:41→12:46)
[2019-08-07 07:27] LABS: AGAP 15; BUN 12 mg/dL (8-22); CALCIUM 9.1 mg/dL (8.8-10.2); CHLORIDE 97 mmol/L (98-107); COSMO 269; CREATININE 0.8 mg/dL (0.7-1.2); ESTIMATED GFR > 60; GLUCOSE 89 mg/dL (70-104); POTASSIUM 3.6 mmol/L (3.5-5.1); SODIUM 135 mmol/L (136-145); TCO2 23 mmol/L (25-35)
[2019-08-07] MEDS: CATAPRES PO SCH ×2 (08:47→12:46)
[2019-08-07] MEDS: NORVASC PO SCH (08:47)
[2019-08-07] MEDS: LOVENOX SUBQ SCH (08:47)
[2019-08-07] MEDS: TOPROL XL PO SCH (08:47)
[2019-08-07] MEDS: PRINIVIL PO SCH (08:47)
[2019-08-07] MEDS: PRILOSEC PO SCH (08:47)
[2019-08-07 08:51] VITALS: BP 160/94
--- NOTE | 2019-08-07 14:26 | DISCHARGE SUMMARY ---
ADMISSION DATE: 08/04/2019 DISCHARGE DATE: 08/07/2019 DISCHARGE DISPOSITION: Home. DISCHARGE CONDITION: Hemodynamically stable. He is alert and oriented. Denies nausea, vomiting, abdominal pain. He does not have any tremors on examination. He is answering questions appropriately and ambulating without any help. DISCHARGE DIAGNOSES: 1. Acute alcohol-induced pancreatitis. 2. Fatty liver. 3. Hyperbilirubinemia due to acute pancreatitis and fatty liver. 4. Mild alcohol withdrawal. 5. Prediabetes. 6. Uncontrolled essential hypertension. 7. Morbid obesity. OTHER DIAGNOSES: 1. History of arterial aneurysm as a child which did not need any surgical intervention. 2. History of left arm compartment syndrome. DISCHARGE MEDICATIONS: 1. Omeprazole 40 mg daily. 2. Clonidine 0.1 mg t.i.d., 30 day supply. 3. Amlodipine 10 mg daily, 30 day supply. 4. Lisinopril 40 mg daily, 30 day supply. VITALS: At the time of discharge, temperature 97.4 degrees, pulse 107, respiratory rate 21, blood pressure 160/90, saturating 99% on room air. PHYSICAL EXAMINATION: Not in acute distress. Oral cavity is moist. Lungs: Air entry bilaterally equal. No wheeze, rhonchi, or crackles. S1, S2 normal. No murmur, rub, or gallop. Abdomen is obese, soft, nontender. No ascites. No lower extremity edema. He is alert and oriented x3. No tremors of upper extremities. He is engaging in the conversation meaningfully. LABS: At the time of discharge, his WBC improved from 20,000 on presentation to 10,000, hemoglobin 14.9, platelets 169,000. Sodium 135, chloride 97, BUN 12, creatinine 0.8. On presentation, he had lipase of 108. His bilirubin on presentation was 3.6 which improved to 1.4 at the time of discharge. MICROBIOLOGY: Six sets of blood cultures did not have any growth. SIGNIFICANT IMAGING DURING HOSPITAL ADMISSION: 1. Chest x-ray on August 02 did not have any acute process. 2. Abdomen and pelvis CT had fatty changes on the liver, acute pancreatitis without any complications. 3. Abdominal ultrasound had severe fatty liver. 4. Chest x-ray on August 04 did not have any acute pathology. 5. Electrocardiogram upon presentation had sinus tachycardia with short DC. HOSPITAL COURSE SUMMARY: Mr. Hines is a 38-year-old, man who initially presented on 08/03/2019 with chief complaints of nausea, vomiting, and 3 days duration of abdominal pain. Associated with that, he had epigastric pain on and off, sharp in nature, without any radiation. The patient admitted to be drinking alcohol about 4 drinks every night for 4 to 5 nights a week, as well as active tobacco abuse. In the emergency room, he was found to have a temperature of 98.6 degrees, pulse of 151, respiratory rate of 20, blood pressure of 180/136. He was saturating 100% on room air. His initial labs had WBC of 20,000, hemoglobin of 19.3. BUN of 11, creatinine of 1.3, and a lipase of 108. CT scan of the abdomen and pelvis had detected acute pancreatitis as well as a fatty liver. It was thought the patient had acute pancreatitis due to his ongoing alcohol abuse. He was started on aggressive intravenous fluid resuscitation, following which his hemoconcentration improved and his leukocytosis improved. His tachycardia also got better. Antihypertensive medications were started for essential hypertension. At the time of discharge, it was well controlled. It was decided to discharge the patient on oral antihypertensive medications and he was given prescriptions of those medications. He was strongly advised quitting alcohol and tobacco. Twenty-five minutes of time was spent in discharging this patient. He was allowed to ask questions. All of his questions were answered. cc: Rahul Holm MD
== END 2019-08-07 14:18 | disposition home or self-care (01) | DRG 439 ==
LOC: ED 22:54 → 3N 08-04 07:22 → SUATTDRO 08-04 07:22
PROVIDERS: ATTEND Internal Medicine